=== PATIENT | female | born 1940 | race Caucasian/White ===

== ENCOUNTER 2025-01-12 14:02 | Inpatient (IN) ==
[2025-01-12] MEDS: morphine 4 MG/ML VIAL IV ONE (14:29)
[2025-01-12] MEDS: ONDANSETRON 4 MG/2 ML VIAL IV ONE (14:29)
[2025-01-12 16:13] LABS: Basophils # (Auto) 0.03 K/mcL (0.00-0.30); Basophils % (Auto) 0.2 % (0.0-2.0); Eosinophils # (Auto) 0.12 K/mcL (0.00-0.70); Eosinophils % (Auto) 0.8 % (0.0-7.0); Hematocrit 39.4 % (34.1-44.9); Hemoglobin 12.5 g/dL (11.2-15.7); Lymphocytes # (Auto) 1.29 K/mcL (1.50-4.80); Lymphocytes % (Auto) 8.7 % (15.5-49.0); Mean Corpuscular HGB Conc 31.7 g/dL (31.0-36.0); Mean Platelet Volume 8.9 fL (8.8-12.5); Monocytes # (Auto) 1.36 K/mcL (0.10-0.90); Monocytes % (Auto) 9.2 % (1.0-12.0); Neutrophils % (Auto) 79.1 % (38.0-78.0); Platelet Count 316 K/mcL (140-440); RBC 3.94 M/mcL (3.59-5.38); Red Cell Distribution Width 14.8 % (11.5-14.5); WBC 14.8 K/mcL (4.5-11.0)
[2025-01-12 16:34] LABS: Blood Urea Nitrogen 25 mg/dL (8-23); Calcium 9.1 mg/dL (8.6-10.4); Carbon Dioxide 23 mmol/L (22-30); Chloride 105 mmol/L (96-108); Glomerular Filtration Rate 41; Glucose 114 mg/dL (70-105); Sodium 140 mmol/L (133-145)
[2025-01-12] MEDS: HYDROmorphone 0.5 MG/0.5 ML SYRINGE IV ONE (19:10)
[2025-01-12] MEDS ORDERED: IPRATROPIUM/ALBUTEROL 3 ML AMPUL.NEB NEB PRN (19:58)
[2025-01-12] MEDS ORDERED: ACETAMINOPHEN 325 MG TABLET PO PRN (19:58)
[2025-01-12] MEDS ORDERED: ONDANSETRON 4 MG/2 ML VIAL IV PRN (19:58)
[2025-01-12] MEDS: DOCUSATE SODIUM 100 MG CAPSULE PO SCH (20:58)
[2025-01-12] MEDS: SENNOSIDES 1 TABLET PO SCH (20:58)
[2025-01-12] MEDS: 0.9 % SODIUM CHLORIDE 10 ML SYRINGE IV SCH (20:58)
[2025-01-12] MEDS: oxyCODONE/APAP 5/325MG TABLET PO PRN (21:02)
[2025-01-12] MEDS: traZODone HCL 50 MG TABLET PO PRN (23:25)
[2025-01-13] MEDS: HYDROmorphone 1 MG/ML SYRINGE IV PRN (00:02)
[2025-01-13] MEDS: BACLOFEN 10 MG TABLET PO PRN (01:14)
[2025-01-13 06:40] LABS: Basophils # (Auto) 0.03 K/mcL (0.00-0.30); Basophils % (Auto) 0.2 % (0.0-2.0); Eosinophils # (Auto) 0.39 K/mcL (0.00-0.70); Hematocrit 38.3 % (34.1-44.9); Hemoglobin 12.6 g/dL (11.2-15.7); Lymphocytes # (Auto) 0.97 K/mcL (1.50-4.80); Lymphocytes % (Auto) 7.5 % (15.5-49.0); Mean Corpuscular HGB Conc 32.9 g/dL (31.0-36.0); Mean Platelet Volume 9.4 fL (8.8-12.5); Monocytes # (Auto) 1.58 K/mcL (0.10-0.90); Monocytes % (Auto) 12.2 % (1.0-12.0); Neutrophils % (Auto) 75.8 % (38.0-78.0); Platelet Count 278 K/mcL (140-440); RBC 3.87 M/mcL (3.59-5.38); Red Cell Distribution Width 14.7 % (11.5-14.5); WBC 12.9 K/mcL (4.5-11.0)
[2025-01-13] MEDS: ENOXAPARIN 40 MG/0.4 ML SYRINGE SQ SCH (10:57)
[2025-01-14 02:34] LABS: Appearance,Urine CLEAR (Clear); Bilirubin,Urine NEGATIVE (Negative); Color,Urine YELLOW; Glucose,Urine (UA) NEGATIVE (Negative); Ketones,Urine NEGATIVE (Negative); Leukocyte Esterase,Urine NEGATIVE /uL (Negative); Mucus,Urine FEW /hpf; Nitrate,Urine NEGATIVE (Negative); Protein,Urine 100 mg/dL (Negative); Specific Gravity,Urine >= 1.030 (1.000-1.035); Urine Blood NEGATIVE ery/mcL (Negative); Urine RBC < 1 /hpf (0-3); Urine Squamous Epithelial Cell < 1 /hpf (0-4); Urine WBC 3 /hpf (0-4); Urobilinogen,Urine Normal
[2025-01-14 06:16] LABS: Basophils # (Auto) 0.01 K/mcL (0.00-0.30); Basophils % (Auto) 0.1 % (0.0-2.0); Eosinophils # (Auto) 0.14 K/mcL (0.00-0.70); Eosinophils % (Auto) 0.9 % (0.0-7.0); Hematocrit 37.8 % (34.1-44.9); Hemoglobin 12.4 g/dL (11.2-15.7); Lymphocytes # (Auto) 1.17 K/mcL (1.50-4.80); Lymphocytes % (Auto) 7.6 % (15.5-49.0); Mean Cell Volume 97.2 fL (80.0-100.0); Mean Corpuscular HGB Conc 32.8 g/dL (31.0-36.0); Mean Platelet Volume 9.5 fL (8.8-12.5); Monocytes # (Auto) 1.93 K/mcL (0.10-0.90); Monocytes % (Auto) 12.5 % (1.0-12.0); Platelet Count 263 K/mcL (140-440); RBC 3.89 M/mcL (3.59-5.38); Red Cell Distribution Width 14.5 % (11.5-14.5); WBC 15.4 K/mcL (4.5-11.0)
[2025-01-15 06:18] LABS: Basophils # (Auto) 0.02 K/mcL (0.00-0.30); Basophils % (Auto) 0.1 % (0.0-2.0); Eosinophils # (Auto) 0.08 K/mcL (0.00-0.70); Eosinophils % (Auto) 0.5 % (0.0-7.0); Hematocrit 36.8 % (34.1-44.9); Hemoglobin 12.2 g/dL (11.2-15.7); Lymphocytes # (Auto) 0.94 K/mcL (1.50-4.80); Mean Cell Volume 96.1 fL (80.0-100.0); Mean Corpuscular HGB Conc 33.2 g/dL (31.0-36.0); Mean Platelet Volume 9.3 fL (8.8-12.5); Monocytes # (Auto) 1.77 K/mcL (0.10-0.90); Monocytes % (Auto) 11.3 % (1.0-12.0); Neutrophils % (Auto) 80.2 % (38.0-78.0); Platelet Count 252 K/mcL (140-440); RBC 3.83 M/mcL (3.59-5.38); Red Cell Distribution Width 14.4 % (11.5-14.5); WBC 15.6 K/mcL (4.5-11.0)
[2025-01-15 12:34] VITALS: TEMP 98.3; O2SAT 92
== END 2025-01-15 11:06 | DRG 563 ==
LOC: ED 14:02 → MEDSUR 19:19
PROVIDERS: ADMIT Internal Medicine; ATTEND Internal Medicine

== ENCOUNTER 2025-03-12 09:31 | Inpatient (IN) ==
[2025-03-12 10:17] LABS: Basophils # (Auto) 0.03 K/mcL (0.00-0.30); Basophils % (Auto) 0.2 % (0.0-2.0); Eosinophils # (Auto) 0.18 K/mcL (0.00-0.70); Eosinophils % (Auto) 1.4 % (0.0-7.0); Hematocrit 34.8 % (34.1-44.9); Hemoglobin 11.3 g/dL (11.2-15.7); Lymphocytes # (Auto) 1.05 K/mcL (1.50-4.80); Lymphocytes % (Auto) 7.9 % (15.5-49.0); Mean Corpuscular HGB Conc 32.5 g/dL (31.0-36.0); Monocytes # (Auto) 1.43 K/mcL (0.10-0.90); Monocytes % (Auto) 10.7 % (1.0-12.0); Neutrophils % (Auto) 75.8 % (38.0-78.0); Platelet Count 322 K/mcL (140-440); RBC 3.73 M/mcL (3.59-5.38); WBC 13.3 K/mcL (4.5-11.0)
[2025-03-12] MEDS: cefTRIAXone 2 GM in DEXTROSE 5% IN WATER 50 ML IV ONE (10:39)
[2025-03-12 11:08] LABS: Anion Gap 14.0 (8.0-16.0); Blood Urea Nitrogen 29 mg/dL (8-23); Calcium 9.9 mg/dL (8.6-10.4); Carbon Dioxide 25 mmol/L (22-30); Chloride 98 mmol/L (96-108); Glucose 117 mg/dL (70-105); Potassium 3.6 mmol/L (3.3-5.1); Sodium 137 mmol/L (133-145)
[2025-03-12 11:08] LABS: INR 1.0 (0.9-1.1); Prothrombin Time 13.3 sec (11.9-14.5)
[2025-03-12] MEDS: AZITHROMYCIN 500 MG in DEXTROSE 5% IN WATER 250 ML IV ONE (11:11)
[2025-03-12] MEDS: 0.9 % SODIUM CHLORIDE 500 ML IV ONE (11:28)
[2025-03-12] MEDS: fentaNYL 100 MCG/2 ML VIAL IV ONE (11:43)
[2025-03-12] MEDS: HYDROmorphone 0.5 MG/0.5 ML SYRINGE IV ONE (12:27)
[2025-03-12] MEDS ORDERED: ONDANSETRON 4 MG/2 ML VIAL IV PRN ×3 (12:31→19:30)
[2025-03-12] MEDS ORDERED: 0.9 % SODIUM CHLORIDE 1,000 ML IV SCH (12:45)
[2025-03-12] MEDS: HYDROmorphone 0.5 MG/0.5 ML SYRINGE IV PRN (13:28)
[2025-03-12 14:05] LABS: RBC Morphology NORMAL (Normal)
[2025-03-12] MEDS ORDERED: PROPOFOL 200 MG/20 ML VIAL IV ONE (15:55)
[2025-03-12] MEDS ORDERED: fentaNYL 100 MCG/2 ML VIAL ONE (15:55)
[2025-03-12] MEDS ORDERED: GLYCOPYRROLATE 0.2 MG/ML VIAL IV ONE (15:57)
[2025-03-12] MEDS ORDERED: FAMOTIDINE/PF 20 MG/2 ML VIAL IV ONE (15:57)
[2025-03-12] MEDS ORDERED: ONDANSETRON 4 MG/2 ML VIAL ONE (15:57)
[2025-03-12] MEDS ORDERED: TRANEXAMIC ACID 1,000 MG/10 ML VIAL ONE (15:57)
[2025-03-12] MEDS ORDERED: LIDOCAINE 2% PF 5 ML VIAL ONE (15:57)
[2025-03-12] MEDS ORDERED: DEXAMETHASONE 10 MG/ML VIAL ONE (15:57)
[2025-03-12] MEDS ORDERED: SUCCINYLCHOLINE 200 MG/10 ML VIAL IV ONE (16:33)
[2025-03-12] MEDS: ceFAZolin 2 GM in DEXTROSE 5% IN WATER 50 ML IV SCH (16:48)
[2025-03-12] MEDS ORDERED: ROCURONIUM 10 MG/ML ML IV ONE (17:02)
[2025-03-12] MEDS ORDERED: SUGAMMADEX SODIUM 200 MG/2 ML VIAL IV ONE (17:03)
[2025-03-12] MEDS ORDERED: IPRATROPIUM/ALBUTEROL 3 ML AMPUL.NEB NEB PRN ×2 (17:24→19:30)
[2025-03-12] MEDS ORDERED: fentaNYL 100 MCG/2 ML VIAL IV PRN (17:24)
[2025-03-12] MEDS ORDERED: HYDROmorphone 0.5 MG/0.5 ML SYRINGE IV PRN (17:24)
[2025-03-12] MEDS ORDERED: TEMAZEPAM 15 MG CAPSULE PO PRN (18:29)
[2025-03-12] MEDS ORDERED: BENZOCAINE/MENTHOL 1 LOZENGE PO PRN (18:29)
[2025-03-12] MEDS ORDERED: MAGNESIUM HYDROXIDE 30 ML ORAL.SUSP PO PRN (18:29)
[2025-03-12] MEDS: MEPERIDINE 25 MG/ML VIAL IV ONE (18:49)
[2025-03-12] MEDS: TRANEXAMIC ACID 1,000 MG/10 ML VIAL IV ONE (18:53)
[2025-03-12] MEDS: MEPERIDINE 50 MG/ML VIAL ONE (19:12)
[2025-03-12] MEDS: TRANEXAMIC ACID 1,000 MG/10 ML VIAL ONE (19:12)
[2025-03-12] MEDS ORDERED: MAGNESIUM SULFATE 2 GM/50 ML BAG IV PRN (19:30)
[2025-03-12] MEDS ORDERED: hydrALAZINE 20 MG/ML VIAL IV PRN (19:30)
[2025-03-12] MEDS ORDERED: ACETAMINOPHEN 325 MG TABLET PO PRN (19:30)
[2025-03-12] MEDS ORDERED: POTASSIUM CHLORIDE 20 MEQ TABLET PO PRN ×2 (19:30)
[2025-03-12] MEDS ORDERED: METOCLOPRAMIDE 10 MG/2 ML VIAL IV PRN (19:30)
[2025-03-12] MEDS ORDERED: POTASSIUM CHLORIDE 40 MEQ in DEXTROSE 5% IN WATER 500 ML IV PRN (19:30)
[2025-03-12] MEDS ORDERED: POLYETHYLENE GLYCOL 3350 17 GM PACKET PO PRN (19:30)
[2025-03-12] MEDS ORDERED: LABETALOL HCL 20 MG/4 ML VIAL IV PRN (19:30)
[2025-03-12] MEDS ORDERED: SENNOSIDES 1 TABLET PO PRN (19:30)
[2025-03-12] MEDS: 0.9 % SODIUM CHLORIDE 1,000 ML IV SCH ×2 (19:32→21:23)
[2025-03-12] MEDS: 0.9 % SODIUM CHLORIDE 10 ML SYRINGE IV SCH ×2 (19:32→21:24)
[2025-03-12] MEDS: LACTATED RINGERS 1,000 ML IV SCH (19:43)
[2025-03-12] MEDS ORDERED: DOCUSATE SODIUM 100 MG CAPSULE PO SCH (21:00)
[2025-03-12] MEDS: ASPIRIN 81 MG TAB.CHEW CHEWED SCH (21:27)
[2025-03-12] MEDS: DOCUSATE SODIUM 100 MG CAPSULE PO SCH (21:27)
[2025-03-13 02:03] LABS: Bilirubin,Urine Negative (Negative); Color,Urine Yellow; Glucose,Urine (UA) Negative (Negative); Ketones,Urine Negative (Negative); Leukocyte Esterase,Urine Negative /uL (Negative); Mucus,Urine FEW /hpf; PH,Urine 6.5 (5.0-9.0); Protein,Urine 30 mg/dL (Negative); Specific Gravity,Urine 1.015 (1.000-1.035); Urobilinogen,Urine Normal
[2025-03-13 07:00] LABS: Basophils # (Auto) 0.02 K/mcL (0.00-0.30); Basophils % (Auto) 0.1 % (0.0-2.0); Eosinophils # (Auto) 0 K/mcL (0.00-0.70); Eosinophils % (Auto) 0 % (0.0-7.0); Hematocrit 26.6 % (34.1-44.9); Hemoglobin 8.8 g/dL (11.2-15.7); Lymphocytes # (Auto) 0.84 K/mcL (1.50-4.80); Lymphocytes % (Auto) 5.4 % (15.5-49.0); Mean Corpuscular HGB Conc 33.1 g/dL (31.0-36.0); Monocytes # (Auto) 1.00 K/mcL (0.10-0.90); Monocytes % (Auto) 6.4 % (1.0-12.0); Neutrophils % (Auto) 85.6 % (38.0-78.0); Platelet Count 281 K/mcL (140-440); RBC 2.84 M/mcL (3.59-5.38); WBC 15.6 K/mcL (4.5-11.0)
[2025-03-13 07:18] LABS: ALT/SGPT 16 U/L (<40); AST/SGOT 23 U/L (<32); Albumin 3.5 gm/dL (3.2-5.2); Albumin/Globulin Ratio 1.9 (1.0-2.3); Alkaline Phosphatase 75 U/L (39-117); Anion Gap 12.0 (8.0-16.0); Bilirubin,Direct < 0.2 mg/dL (0-0.3); Bilirubin,Total 0.3 mg/dL (0.1-1.0); Blood Urea Nitrogen 24 mg/dL (8-23); Calcium 8.8 mg/dL (8.6-10.4); Carbon Dioxide 24 mmol/L (22-30); Chloride 97 mmol/L (96-108); Globulin 1.8 gm/dL (2.2-3.7); Glucose 142 mg/dL (70-105); Phosphorous 4.4 mg/dL (2.5-4.5); Potassium 3.9 mmol/L (3.3-5.1); Sodium 133 mmol/L (133-145); Triglycerides 127 mg/dL (<150); Uric Acid 7.4 mg/dL (2.5-8.0)
[2025-03-13] MEDS: cefTRIAXone 1 GM VIAL IV SCH (08:50)
[2025-03-13] MEDS ORDERED: BACLOFEN 10 MG TABLET PO PRN (10:37)
[2025-03-13] MEDS: AZITHROMYCIN 500 MG in DEXTROSE 5% IN WATER 250 ML IV SCH (10:57)
[2025-03-13] MEDS: ACETAMINOPHEN 325 MG TABLET PO PRN (12:41)
[2025-03-14 03:47] VITALS: TEMP 98.1
[2025-03-14 06:36] LABS: Basophils # (Auto) 0.03 K/mcL (0.00-0.30); Basophils % (Auto) 0.2 % (0.0-2.0); Eosinophils # (Auto) 0.27 K/mcL (0.00-0.70); Eosinophils % (Auto) 2.2 % (0.0-7.0); Hematocrit 25.0 % (34.1-44.9); Hemoglobin 8.2 g/dL (11.2-15.7); Lymphocytes # (Auto) 1.15 K/mcL (1.50-4.80); Lymphocytes % (Auto) 9.3 % (15.5-49.0); Mean Corpuscular HGB Conc 32.8 g/dL (31.0-36.0); Monocytes # (Auto) 1.41 K/mcL (0.10-0.90); Monocytes % (Auto) 11.4 % (1.0-12.0); Neutrophils % (Auto) 74.5 % (38.0-78.0); Platelet Count 268 K/mcL (140-440); RBC 2.64 M/mcL (3.59-5.38); WBC 12.4 K/mcL (4.5-11.0)
[2025-03-14] MEDS: HYDROcodone/APAP 10/325MG TABLET PO PRN (10:01)
[2025-03-14 10:46] VITALS: O2SAT 92
== END 2025-03-14 10:21 | DRG 480 ==
LOC: ED 09:31 → SSSU 15:10 → MEDSUR 19:21
PROVIDERS: ADMIT Internal Medicine; ATTEND Internal Medicine